=== PATIENT | female | born 1990 | race Caucasian/White ===

== ENCOUNTER 2019-06-14 19:27 | Emergency (ER) | payer BC, SELFPAY ==
[2019-06-14] MEDS ORDERED: ONDANSETRON INJ 4 MG/2 ML VIAL IM ONE (19:42)
[2019-06-14] MEDS ORDERED: HYDROmorphone HCL INJ 2 MG/ML VIAL IM ONE (19:42)
--- NOTE | 2019-06-14 20:39 | RAD ---
EXAM DESCRIPTION: Wrist,Left 3 Views CLINICAL HISTORY: 28 years Female, left wrist pain s/p fall from truck. COMPARISON: None. FINDINGS: There is an acute, comminuted fracture of the distal left radial metaphysis with fracture line extending into the articular surface with mild apex volar angulation and mild displacement of fracture fragments. No dislocation. Soft tissue swelling of the wrist is noted. IMPRESSION: Acute, comminuted, intraarticular fracture of the distal left radial metaphysis. Electronically signed by: Moises Kirk MD 06/14/2019 8:38 PM CDT
--- NOTE | 2019-06-14 21:39 | ED.PDOC ---
History of Present Illness - General Chief Complaint: Upper Extremity Injury Stated Complaint: fell out of truck Time Seen by Provider: 06/14/19 19:41 Source: patient, RN notes reviewed, Vital Signs reviewed, family - Exam Limitations: no limitations - History of Present Illness Initial Comments: patient is a 28-year-old white female who was getting out of her 's truck and her purse got hung up on her ankle and she fell forward out of the truck onto her left wrist. And tenderness to palpation. She denies any weakness or paresthesias but she has limited range of motion secondary to pain. Patient denies any other symptoms. She does not have a headache, nausea, vomiting, chest pain, shortness of breath, diarrhea. the pain is throbbing in nature. Worse with movement or palpation, better with rest. She has never had anything like this before. Occurred: just prior to arrival Pain - Upper Extremity: severe: Wrist, left Method of Injury: fell Improving Factors: cold therapy, immobilization, rest Worsening Factors: movement Associated Symptoms: none Allergies/Adverse Reactions: Allergies NO KNOWN ALLERGY Allergy (Unverified 09/10/13 22:45) Home Medications: Ambulatory Orders Phenazopyridine HCl [Pyridium] 200 mg PO Q8HRS PRN #9 tab 07/08/14 Sulfa/Trimeth 800/160 (Ds) Tab [Bactrim DS Tab] 1 ea PO BID #10 tab 07/08/14 Valacyclovir HCl [Valtrex] 500 mg PO DAILY 07/08/14 Acetaminophen W/ Codeine [Tylenol W/ CODEINE #3] 1 ea PO Q6HRS #20 06/14/19 Ondansetron Odt [Zofran ODT] 4 mg PO Q6HRS #10 tab 06/14/19 Review of Systems - Review of Systems Constitutional: States: no symptoms reported EENTM: States: no symptoms reported Respiratory: States: no symptoms reported Cardiology: States: no symptoms reported Gastrointestinal/Abdominal: States: no symptoms reported Genitourinary: States: no symptoms reported Musculoskeletal: States: see HPI, joint pain, joint swelling Skin: States: no symptoms reported, see HPI Neurological: States: no symptoms reported, see HPI Endocrine: States: no symptoms reported, see HPI All other Systems: Reviewed and Negative Past Medical History (General) - Patient Medical History Hx Seizures: No Hx Stroke: No Hx Dementia: No Hx Asthma: No Hx of COPD: No Hx Cardiac Disorders: No Hx Congestive Heart Failure: No Hx Pacemaker: No Hx Hypertension: No Hx Thyroid Disease: No Hx Diabetes: No Hx Gastroesophageal Reflux: No Hx Renal Disease: No Hx Cancer: No Hx of HIV: No Hx Hepatitis C: No Hx MRSA: No - Vaccination History Hx Tetanus, Diphtheria Vaccination: Yes - Social History Hx Tobacco Use: Yes Hx Substance Use: No Hx Substance Use Treatment: No Hx Depression: No Feels Threatened In a Relationship: No Hx Physical Abuse: No Hx Emotional Abuse: No - Activities of Daily Living Hospice Agency (if applicable):: None - Female History Patient is a Female of Child Bearing Age (10 -59 yrs old): Yes Patient : No - Triage Comment ED Triage Comment: pt voices she fell out of truck when trying to get in Family Medical History - Family History Mother Family History: No Known Physical Exam - Physical Exam General Appearance: Alert, Anxious, Obvious distress, Well Developed, Well Groomed, Well Hydrated, Well Nourished Eyes, Ears, Nose, Throat Exam: PERRL/EOMI, normal ENT inspection, pharynx normal Neck: non-tender, full range of motion, supple Cardiovascular/Respiratory: regular rate, rhythm, no M/R/G, normal peripheral pulses, normal breath sounds, no respiratory distress Abdominal Exam: non-tender, no organomegaly Back Exam: normal inspection, no CVA tenderness, no vertebral tenderness Shoulder Exam: normal inspection, non-tender, no evidence of injury, normal ROM Elbow/Forearm Exam: normal inspection, non-tender, no evidence of injury, normal ROM Wrist Exam: bone tenderness, deformity - swelling over the dorsal aspect of the distal radius., limited ROM - secondary to pain., pain, swelling Hand Exam: normal inspection, non-tender, no evidence of injury, normal ROM Neuro/Tendon: normal sensation, normal motor functions, normal tendon functions, responds to pain, no evidence tendon injury Mental Status: alert, oriented x 3, depressed affect Skin Exam: normal color, warm/dry Progress - Progress Progress: 06/14/19 21:45 patient is markedly improved after splint placement. She is neurovascularly intact. Sensation is intact in all her fingers with a cap refill of less than 2 seconds. Plan on discharge home with pain medication and follow-up with orthopedics. I discussed the plan of care with the patient and her and they voice understanding and agreement. Alonzo Harding M.D. #[id number] - Results/Orders Results/Orders: EXAM DESCRIPTION: Wrist,Left 3 Views CLINICAL HISTORY: 28 years Female, left wrist pain s/p fall from truck. COMPARISON: None. FINDINGS: There is an acute, comminuted fracture of the distal left radial metaphysis with fracture line extending into the articular surface with mild apex volar angulation and mild displacement of fracture fragments. No dislocation. Soft tissue swelling of the wrist is noted. IMPRESSION: Acute, comminuted, intraarticular fracture of the distal left radial metaphysis. Electronically signed by: Moises Kirk MD 06/14/2019 8:38 PM CDT Procedures - Splinting Left Wrist Hand-Made Type: fiberglass Splint: sugar-tong Pre-Proc Neuro Vasc Exam: normal Post-Proc Neuro Vasc Exam: normal, unchanged from pre-exam Progress: patient tolerated the procedure well. Departure - Departure Clinical Impression: Distal radius fracture, left Qualifiers: Encounter type: initial encounter Fracture type: closed Fracture morphology: other intra-articular Qualified Code(s): S52.572A - Other intraarticular fracture of lower end of left radius, initial encounter for closed fracture Time of Disposition: 21:47 Disposition: Discharge to Home or Self Care Condition: Good Departure Forms: ED Discharge - Pt. Copy, Patient Portal Self Enrollment Instructions: Wrist Fracture (DC), Radius Fracture (DC) Referrals: Deangelo Felix MD [Primary Care Provider] - 1-2 Weeks Prescriptions: Acetaminophen W/ Codeine [Tylenol W/ CODEINE #3] 1 ea PO Q6HRS #20 Ondansetron Odt [Zofran ODT] 4 mg PO Q6HRS #10 tab Home Medications: Ambulatory Orders Phenazopyridine HCl [Pyridium] 200 mg PO Q8HRS PRN #9 tab 07/08/14 Sulfa/Trimeth 800/160 (Ds) Tab [Bactrim DS Tab] 1 ea PO BID #10 tab 07/08/14 Valacyclovir HCl [Valtrex] 500 mg PO DAILY 07/08/14 Acetaminophen W/ Codeine [Tylenol W/ CODEINE #3] 1 ea PO Q6HRS #20 06/14/19 Ondansetron Odt [Zofran ODT] 4 mg PO Q6HRS #10 tab 06/14/19
[2019-06-14] MEDS ORDERED: HYDROCOD/APAP 5/325 (ER DISP) #3 TAB PO ONE (21:51)
[2019-06-14 22:09] VITALS: BP 134/100; TEMP 98.4; O2SAT 98
== END 2019-06-14 22:08 | disposition home or self-care (01) ==
LOC: ER 19:27
DX: S52.572A Other intraarticular fracture of lower end of left radius, initial encounter for closed fracture (principal); Z87.891 Personal history of nicotine dependence; V83.4XXA Person injured while boarding or alighting from special industrial vehicle, initial encounter; Y92.812 Truck as the place of occurrence of the external cause
CPT/HCPCS: 73110; J1170; J2405

== ENCOUNTER → 2019-06-16 | Outpatient (CLI) | payer OTHER ==
--- NOTE | 2019-06-16 15:29 | RAD ---
3 radiographs left wrist Indication: PAIN Comparison: June 14, 2019 Impression: Comminuted intra-articular distal radial fracture redemonstrated with stable alignment. The fracture remains ununited. New splinting material present. No new fracture. Electronically signed by: Norbert Blandon MD 06/16/2019 3:27 PM CDT
== END ==
LOC: RAD 10:23
PROVIDERS: ATTEND Orthopaedic Surgery
DX: S52.572D Other intraarticular fracture of lower end of left radius, subsequent encounter for closed fracture with routine healing (principal)

== ENCOUNTER → 2019-06-24 | Outpatient (CLI) | payer OTHER ==
--- NOTE | 2019-06-24 12:15 | RAD ---
EXAM DESCRIPTION: Wrist,Left 3 Views CLINICAL HISTORY: 28 years, Female, CLOSED FRACTURE OF DISTAL END OF RADIUS COMPARISON: Previous x-rays of the left wrist June 16, 2019 FINDINGS: Left wrist 3 casted x-ray views is positive for fracture of the distal radius which appears comminuted and extends into the radiocarpal joint. Mild splaying of fragments. No significant dorsal angulation of the radial articular surface. Slight displacement of posterior fragment is stable in configuration.. Carpal relationships are well-maintained. No significant arthritic changes are observed. IMPRESSION: Comminuted fracture of the distal left radius. Electronically signed by: Jair Paul MD 06/24/2019 12:14 PM CDT
== END ==
LOC: RAD 09:28
PROVIDERS: ATTEND Orthopaedic Surgery
DX: S52.515A Nondisplaced fracture of left radial styloid process, initial encounter for closed fracture (principal)

== ENCOUNTER → 2019-07-11 | Outpatient (CLI) | payer SELFPAY ==
--- NOTE | 2019-07-11 09:04 | RAD ---
EXAM DESCRIPTION: Wrist,Left 3 Views CLINICAL HISTORY: 28 years Female, FRACTTUE OF THE LOWER END OF LEFT RADIUS COMPARISON: 06/24/2019 Findings: Increasing sclerosis and decreasing fracture lucency compatible with healing involving the comminuted intra-articular distal radius fracture. Similar alignment. No new fracture identified. Cast material has been removed. No focal soft tissue swelling. IMPRESSION: Healing distal left radius fracture. Electronically signed by: Paulie Jacinto MD 07/11/2019 9:03 AM [facility]
== END ==
LOC: RAD 08:17
PROVIDERS: ATTEND Orthopaedic Surgery
DX: S52.502D Unspecified fracture of the lower end of left radius, subsequent encounter for closed fracture with routine healing (principal)

== ENCOUNTER → 2019-07-21 | Outpatient (CLI) | payer SELFPAY ==
--- NOTE | 2019-07-21 08:40 | RAD ---
EXAM DESCRIPTION: Wrist,Left 3 Views CLINICAL HISTORY: 28 years, Female, UNSPECIFIED FRACTURE OF THE LOWER END OF LEFT RADIUS COMPARISON: Previous study July 11, 2019 FINDINGS: Left wrist 3 x-ray views is positive for healing fracture of the distal radial metaphysis. Mild splaying of fragments seen on previous study is noted with slight dorsal tilt of the articular surface, unchanged in alignment. Increased sclerosis consistent with bridging callus of progressive healing. Fracture line is not as well-seen as on previous. Carpal relationships are well-maintained. Distal ulna appears intact. Normal metacarpals. IMPRESSION: Healing fracture of the distal left radius. Electronically signed by: Jair Paul MD 07/21/2019 8:[address] [facility]
== END ==
LOC: RAD 08:16
PROVIDERS: ATTEND Orthopaedic Surgery
DX: S52.502D Unspecified fracture of the lower end of left radius, subsequent encounter for closed fracture with routine healing (principal)